=== PATIENT | male | born 1995 | race Two or more races ===

== ENCOUNTER 2019-08-28 14:34 | Emergency (ER) | payer SELFPAY ==
[~2019-08-28] VITALS: Ht 167.6 cm; Wt 63.5 kg
[~2019-08-28 14:34] MED LIST: Acetaminophen 500mg (ES) tab ORAL SCH; Bacitracin Oint 15gm Tube TOPIC SCH; Cephalexin 500mg cap ORAL SCH
[2019-08-28 14:38] VITALS: BP 134/65
--- NOTE | 2019-08-28 14:42 | NUR ---
ED Nurse Note: Patient was brought in from street by RA 61 due to right index finger swelling and left ankle pain x 5 days. PAtient left AMA from [facility] for same symptom. Patient AAO x4, VSS at this time.
[2019-08-28] MEDS ORDERED: Lidocaine 2% MPF 5ml Vial INJ ONE (15:30)
[2019-08-28] MEDS ORDERED: Tetanus/Diptheria/Pertussis IM ONE (15:45)
--- NOTE | 2019-08-28 15:45 | NUR ---
ED Nurse Note: A&D was performed by DIANA Shipman, patient tolerated procedure well.
--- NOTE | 2019-08-28 15:48 | Diagnostic Imaging Report ---
EXAM: XR Right Fingers, 2 or More Views CLINICAL HISTORY: PAIN TECHNIQUE: Frontal, lateral and oblique views of the fingers of the right hand. COMPARISON: None FINDINGS: Bones/joints: No displaced fracture or dislocation identified. Joint space is maintained. No bony lesion. Soft tissues: Soft tissue swelling. IMPRESSION: 1. No displaced fracture or dislocation identified. 2. Soft tissue swelling.
--- NOTE | 2019-08-28 15:50 | Diagnostic Imaging Report ---
EXAM: XR Left Ankle Complete, 3 or More Views CLINICAL HISTORY: PAIN TECHNIQUE: Frontal, lateral and oblique views of the left ankle. COMPARISON: None FINDINGS: Bones/joints: No displaced fracture or dislocation identified. Ankle mortise is intact. Soft tissues: Soft tissue swelling. IMPRESSION: 1. No displaced fracture or dislocation identified. 2. Soft tissue swelling.
--- NOTE | 2019-08-28 15:56 | Emergency Room Report ---
History of Present Illness General Chief Complaint: Pain Source: EMS Present Illness HPI 23 YO male presents to the ED c/o 5/10 Pain to the lateral left ankle and the right index finger x 5 days. Pt. reports symptoms to be progressive. Patient reports he twisted his ankle. He reports pain exacerbated upon weightbearing. Patient also reports that he began having an infection on the top of his finger and he attempted to drain it himself with a razor blade. Patient also states that he was at [facility] for his symptoms previously but left. Patient denies fevers or chills. He is not sure when his last tetanus vaccination was. Patient denies taking blood thinning medications. He denies significant past medical history. Patient also reports that he hit his finger on cement. Patient states he is right-hand dominant. No other aggravating or relieving factors at this time. He admits to drug use today. Allergies: Coded Allergies: No Known Allergies (Unverified , 08/28/19) COVID-19 Screening Contact w/high risk pt: No Recent Travel to affected area: No Experienced COVID-19 symptoms?: No COVID-19 Testing performed CRATING AND MOVING ESTIMATOR: No Patient History Past Medical History: see triage record Past Surgical History: none Pertinent Family History: none Social History: Reports: drug use Reviewed Nursing Documentation: PMH: Agreed; PSxH: Agreed Nursing Documentation-PMH Past Medical History: No History, Except For Hx Asthma: Yes Review of Systems All Other Systems: negative except mentioned in HPI Physical Exam Vital Signs Date Time Temp Pulse Resp B/P (MAP) Pulse Ox O2 Delivery O2 Flow Rate FiO2 08/28/19 14:28 98.1 110 18 134/65 (88) 97 Room Air Sp02 EP Interpretation: reviewed, normal General Appearance: no apparent distress, alert, GCS 15, non-toxic Head: normocephalic, atraumatic Eyes: bilateral eye normal inspection, bilateral eye PERRL ENT: hearing grossly normal, normal voice Neck: full range of motion Respiratory: chest non-tender, lungs clear, normal breath sounds, speaking full sentences Cardiovascular #1: regular rate, rhythm, normal capillary refill, tachycardia Cardiovascular #2: 2+ dorsalis pedis (L) - post tibial Genitourinary: normal inspection Musculoskeletal: back normal, normal range of motion, gait/station normal, tender - Lateral aspect of the left ankle. Cuticle area and tip of the right index finger. - FROM of both., swelling - Lateral aspect of the left ankle. Cuticle area and tip of the right index finger. Neurologic: alert, motor strength/tone normal, oriented x3, sensory intact, responsive, speech normal Psychiatric: judgement/insight normal Skin: other - swelling and erythema at the eponychial cuticle fold. there is ttp and swelling to the distal aspect of the right index finger, mild finger pad tenderness, tenderness primarily at the edge of the nail. there is some white discoloration in addition to what looks like a blood blister. no streaking. FROM. Lymphatic: no adenopathy Procedures Incision and Drainage Incision and Drainage : Consent: Verbal Site: Right index Blade Size: 11 I & D Procedure: betadine prep, sterile drapes applied, sterile dressing applied Wound Location: upper extremity - Right index finger, other - Index finger- lateral aspect on the side closest to the middle finger. Wound's Depth, Shape: linear Wound Length (cm): 1 Wound Explored: contaminated - thick white d/c was expressed with moderate pressure, did not flow freely. Anesthesia: 1% Lidocaine Volume Anesthetic (ccs): 3 Splint Applied?: Yes Type of Splint Applied: Right index finger Sling Applied?: No Patient Tolerated: Well Complications: None Progress Index finger- lateral aspect on the side closest to the middle finger. small incision less than 0.5cm and hemostats used for blunt dissection. Medical Decision Making DIANA Attestation Dr. Calloway is my supervising Physician whom patient management has been discussed with. Homeless Attestation I, The treating provider, Edwige ORTIZ, has assessed and agrees that patient is medically stable for discharge to an outpatient disposition. Diagnostic Impression: Primary Impression: Left ankle sprain Qualified Codes: S93.402A - Sprain of unspecified ligament of left ankle, initial encounter Additional Impression: Paronychia of finger of right hand ER Course 23 YO male presents to the ED c/o 5/10 Pain to the lateral left ankle and the right index finger x 5 days. Pt. reports symptoms to be progressive. Patient reports he twisted his ankle. He reports pain exacerbated upon weightbearing. Patient also reports that he began having an infection on the top of his finger and he attempted to drain it himself with a razor blade. Patient also states that he was at [facility] for his symptoms previously but left. Patient denies fevers or chills. He is not sure when his last tetanus vaccination was. Patient denies taking blood thinning medications. He denies significant past medical history. Patient also reports that he hit his finger on cement. Patient states he is right-hand dominant. No other aggravating or relieving factors at this time. He admits to drug use today. Ddx considered but are not limited to cellulitis, paronychia, eponychia, ingrown toe nail, fracture, d/L, gout Vital signs: are WNL, pt. is afebrile H&PE are most consistent with Right index finger paronychia ORDERS: none required at this time, the diagnosis is clinical ED INTERVENTIONS: - verbal consent was received . - Right index finger was cleaned with Betadine prep. -Anesthetized using 3cc 5% lidocaine digital block. - Using no. 11 blade index finger was incised. a 18g needle was used to gently lift the cuticle of the right index finger. minimal to no d/c was expressed. - sterile band-aid was then applied afterward. - Finger Splint applied to the right index finger by process control tech. Pt. remains neurovascularly intact. - will d/c pt. with PO abx. DISCHARGE: At this time pt. is stable for d/c to home. Will provide printed patient care instructions, and any necessary prescriptions. Care plan and follow up instructions have been discussed with the patient prior to discharge. Pt. homeless, ED has limited antibiotics for homeless d/c. Augmentin which is preferred abx for this pt. condition is not available. Pt. given Keflex 500mg instead. He was instructed that if at all possible attempt to fill the Augmentin as this is superior to the Keflex. Other X-Ray Diagnostic Results Other X-Ray Diagnostic Results #1: X-Ray ordered: X-ray Left ANKLE # of Views/Limited Vs Complete: 3 View Indication: Pain EP Interpretation: Yes DIANA Xray: Interpretation reviewed, by supervising MD, and agrees with findings. Interpretation: no dislocation, no soft tissue swelling, no fractures Impression: No acute disease Electronically Signed by: Edwige Urias PA-C Other X-Ray Diagnostic Results #2: X-Ray ordered: Right Hand/Fingers # of Views/Limited Vs Complete: 3 View Indication: Pain EP Interpretation: Yes DIANA Xray: Interpretation reviewed, by supervising MD, and agrees with findings. Interpretation: no dislocation, no soft tissue swelling, no fractures Electronically Signed by: Edwige Urias PA-C Last Vital Signs Date Time Temp Pulse Resp B/P (MAP) Pulse Ox O2 Delivery O2 Flow Rate FiO2 08/28/19 14:38 98.1 18 134/65 97 Room Air 08/28/19 14:28 110 Disposition: HOME, SELF-CARE Condition: Stable Scripts Cephalexin* (KEFLEX*) 500 Mg Capsule 500 MG ORAL EVERY 12 HOURS for 7 Days, #14 CAP 0 Refills Prov: Edwige Urias 08/28/19 Bacitracin (Bacitracin) 28.4 Gm Oint...g. 1 APPLIC TOPIC THREE TIMES A DAY, #28.3 GM Prov: Edwige Urias 08/28/19 Acetaminophen* (TYLENOL EXTRA STRENGTH*) 500 Mg Tablet 500 MG ORAL Q6H, #15 TAB 0 Refills Prov: Edwige Urias 08/28/19 Amoxicillin/Potassium Clav 875-125* (AUGMENTIN 875-125 TABLET*) 1 Each Tablet 1 TAB ORAL TWICE A DAY for 7 Days, #14 TAB Prov: Edwige Urias 08/28/19 Referrals: NOT CHOSEN IPA/,REFERRING (PCP) Juan Jose Smith [facility] Patient Instructions: Ankle Sprain, [id number], Paronychia, [id number] Additional Instructions: Take medications as directed. FOLLOW UP within 72 HOURS for WOUND CHECK * * Follow up with a Primary Care Provider in 3-5 days, even if your symptoms have resolved. --Please review list of primary care clinics, if you do not already have a primary care provider Return sooner to ED if new symptoms occur, or current symptoms become worse. - Please note that this Emergency Department Report was dictated using [employer]consultants intern technology software, occasionally this can lead to erroneous entry secondary to interpretation by the dictation equipment. Edwige Urias August 28, 2019 15:56
[2019-08-28] MEDS ORDERED: Augmentin 875mg Tab ORAL ONE (16:00)
[2019-08-28] MEDS ORDERED: BACITRACIN15 GM TOPIC (16:17)
[2019-08-28] MEDS ORDERED: AUGMENTIN 875-1 EAC1 ORAL (16:17)
[2019-08-28] MEDS ORDERED: TYLENOL EXTRA500 MG ORAL (16:17)
[2019-08-28] MEDS ORDERED: CEPHALEXIN500 MG ORAL (16:50)
--- NOTE | 2019-08-28 17:40 | NUR ---
ED Nurse Note: splint was applyed to patient's left foot, crutches was provided, food and clothes given
[2019-08-28 17:42] VITALS: BP 134/65
--- NOTE | 2019-08-28 17:49 | NUR ---
ED Nurse Note: Pt cleared by health care Provider for discharge. DC instructions/prescription was given and explained to pt and verbalized understanding of teachings. All medical deviecs such as ID band removed. Pt is AAO x4, ambulatory and left with all personal belongings.
== END 2019-08-28 17:42 | disposition home or self-care (01) ==
LOC: EDBD 14:34 → EMR 15:09
DX: S93.402A Sprain of unspecified ligament of left ankle, initial encounter (principal); L03.011 Cellulitis of right finger; X50.1XXA Overexertion from prolonged static or awkward postures, initial encounter; Y92.9 Unspecified place or not applicable; Z23 Encounter for immunization
CPT/HCPCS: 10060; 29130; 80307; 90471; 90715; 99284